=== PATIENT | female | born 1965 | race Caucasian/White ===

== ENCOUNTER 2017-08-03 08:30 | Day surgery (SDC) | payer MEDICARE, MEDICAID ==
[~2017-08-03] VITALS: Ht 162.6 cm; Wt 64.0 kg
[~2017-08-03 08:30] MED LIST: AMITRIPTYLINE100 M1 PO; BAYER ASPIRIN C81 MG PO; CELEXA40 MG PO; CETIRIZINE HCL10 MG PO; CLINDAMYCIN HC300 MG PO; CYCLOBENZ5 MG PO; CYCLOBENZAPRINE10 M1 PO; ELAVIL GENERIC25 MG PO; FLEXERIL10 MG PO; FLONASE 50 MCG16 GM; HYDROCODONE BIT1 T22 PO; HYDROCODONE-APA1 TA2 PO; KCL 10% 2020 MEQ/15 PO; LISINOPRIL AND1 TAB PO; LISINOPRIL/HCTZ1 TA3; LORTAB 5/500 501 TAB PO; MEDROL 4MG. DOSE4 MG PO; MELOXICAM7.5 MG PO; MOTRIN 600MG.600 MG PO; NAPROSYN 500MG500 MG PO; NAPROXEN SOD550 MG PO; NITROFURANTOIN50 M1; NITROFURANTOIN50 MG PO; NORCO 325 MG-51 TAB PO; OMEPRAZOLE40 MG PO; POTASSIUM CHLO20 ME2 PO; ROBAXIN-750750 MG PO; SPIRIVA HA1 PUFF/INH IH; SPIRIVA HA1 PUFF/INH IN; SPIRIVA18 MCG IH; SYMBICORT1 AE1 IH; SYMBICORT1 AER IH; ULTRAM50 MG PO; VENTOLIN H0.09 MG/Ac IH; VICODIN 5/500 T1 TAB PO; VITAMIN D31000 IU PO
--- NOTE | 2017-08-03 10:53 | Anesthesia Record ---
Anesthesia Record Part I Total IV fluids: 700 EBL (ml): 0 Urine Output: 0 B/P: 134/73 % SaO2: 93 Pulse: 69 Resps: 12 Temp: 97.4 Patient is: Awake, Stable Stable to PACU at: 1050 at 1053
--- NOTE | 2017-08-03 10:53 | Anesthesia Record ---
Anesthesia Record Part II Discharge time: 1120 Destination: Same day surgery PACU nurse assessment review? Yes Patient is: Awake, Stable Anesthesia complications? No at 1058
[2017-08-03 12:58] VITALS: BP 129/55
--- NOTE | 2017-08-03 15:36 | Operative Note-Urology ---
Procedure/Operative Record Procedure DATE OF PROCEDURE: 08/03/17 PREOPERATIVE DIAGNOSIS: Chronic cystitis with urinary urgency POSTOPERATIVE DIAGNOSIS: Same with urethral stenosis PROCEDURE PERFORMED: Cystoscopy with urethral dilation SURGEON: Darwin Garcia ANESTHESIA: Gen. BRIEF HISTORY: Patient has history of suburethral sling 10 years ago by me for stress urinary incontinence. She has recently developed episodes of recurrent urinary infections. For several years she has had issues with urinary urgency and frequency. She is also developed some dyspareunia. She was seen recently for the first time in several years. Due to persistence of her symptoms I suggest we start with cystoscopy for further evaluation to exclude the possibility of exposed mesh. She is currently on antibiotics and has been on Macrobid since her last visit. OPERATIVE NOTE: After satisfactory general anesthesia she was carefully placed in the dorsolithotomy position. The genital area was prepped and draped in standard fashion. The 22 Kinyarwanda cystoscope sheath was introduced with the 30 degree lens. Her urethra was snug. She has a mild cystocele. 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 The remainder of the bladder was unremarkable. Her bladder was inspected with both 30 and 70 degree lenses. There is no evidence of stones or bladder pathology. The bladder was drained and cystoscope removed. The urethra was calibrated up to 28 Kinyarwanda with the Марина sounds. The urethra was inspected and there is no evidence of exposed intra-urethral mesh. Vaginoscopy was performed and there was no evidence of mesh exposure in the vagina. EBL (ml): 0 IMPRESSION: Chronic cystitis with urethral stenosis. PLAN: I switched her to doxycycline 100 mg twice a day. She was given a prescription for Aurora 7.5 mg number 6 tablets. She'll follow-up in one month. at 2319
== END 2017-08-03 12:15 | disposition home or self-care (01) ==
LOC: SDC 08:30
PROVIDERS: Urology
PROC: 0T7D8DZ Dilation of Urethra with Intraluminal Device, Via Natural or Artificial Opening Endoscopic (ICD-10-PCS; principal; 2017-08-03 10:00)
DX: N30.20 Other chronic cystitis without hematuria (principal); R39.15 Urgency of urination; N35.9 Urethral stricture, unspecified
CPT/HCPCS: J2405